=== PATIENT | male | born 1960 | race Caucasian/White ===

== ENCOUNTER 2021-12-30 18:52 | Emergency (ER) | payer MEDICAID ==
[~2021-12-30] VITALS: Ht 180.3 cm; Wt 90.9 kg
[~2021-12-30 18:52] MED LIST: AMIODARONE 150 MG/3 ML VIAL ONE; EPINEPHrine SYRINGE 1 MG/10 ML SYRINGE. ONE; SODIUM BICARB ADULT 8.4% 50 MEQ/50 ML DISP.SYRIN. ONE
[2021-12-30] MEDS ORDERED: EPINEPHrine SYRINGE 1 MG/10 ML SYRINGE. ONE (19:05)
[2021-12-30] MEDS ORDERED: MAGNESIUM SULFATE 2 GM/50 ML IV ONE (19:05)
[2021-12-30] MEDS ORDERED: EPINEPHrine 1 MG/ML VIAL ONE (19:05)
--- NOTE | 2021-12-30 21:09 | PHYS DOC ---
Past Medical History Past Surgical History: Pacemaker Smoking Status: Unknown if ever smoked Alcohol Use: None Adult General Chief Complaint Chief Complaint: CPR/FULL ARREST HPI HPI Patient is a 61 year old male who presents in cardiac arrest. The patient was complaining of chest pain earlier and had called EMS. Upon arrival the patient had become unresponsive and EMS initiated chest compressions. He was given 4 mg of epinephrine in route and bagged with bag valve mask device till arriving in the ED. Patient has been pulseless since 6:30 PM or so. EMS had a rhythm of PEA in route. Patient had also been given 1 amp of bicarb in route. He has a history of pacemaker placement otherwise cardiac and other past medical history are unknown. Review of Systems Review of Systems Unable to obtain review of systems secondary to patient's unresponsive status Allergies Allergies Allergies Coded Allergies Type Severity Reaction Last Updated Verified Unable to Assess 12/30/21 No Physical Exam Physical Exam Constitutional: Well developed, well nourished, obtunded and unresponsive HENT: Normocephalic, atraumatic, bilateral external ears normal, oropharynx moist. [] Eyes: Pupils are unresponsive, no injection. [] Neck: No palpable crepitus, trachea midline. [] Cardiovascular: Patient is pulseless with a nonpalpable pulse and nonaudible heart tones. [] Lungs & Thorax: Bilateral breath sounds clear to auscultation after endotracheal intubation [] Abdomen: No palpable masses or organomegaly Skin: Warm, dry, no erythema, no rash. [] Extremities: No edema or external evidence of trauma Neurologic: Patient is obtunded nonresponsive to verbal stimuli or painful stimuli. No gag reflex, no corneal reflex. Psychologic: Patient unresponsive Current Patient Data Vital Signs Vital Signs Date Time Temp Pulse Resp B/P (MAP) Pulse Ox O2 Delivery O2 Flow Rate FiO2 12/30/21 18:52 Bag Valve Mask EKG EKG [] Radiology/Procedures Radiology/Procedures [] Course & Med Decision Making Course & Med Decision Making Pertinent Labs and Imaging studies reviewed. (See chart for details) [] There is a 61-year-old male was brought in as a medical code. 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 He was given an additional milligram of epi and an additional amp of bicarb and endotracheal tube was placed and secured. This was confirmed with auscultation as well as end-tidal CO2 detection. Rhythm remained disorganized and patient was cardioverted, that is defibrillated at 200 J. He was given additional milligram of epi x2 and then escalating dose of 3 mg. He was defibrillated 2 additional times and given 2 additional amps of bicarb throughout the code. Bedside cardiac ultrasound demonstrated lack of any cardiac physical activity at all. Patient's efforts at resuscitation were stopped at 19:09. Dragon Disclaimer Dragon Disclaimer This electronic medical record was generated, in whole or in part, using a voice recognition dictation system. Departure Departure Impression: Primary Impression: Cardiac arrest Disposition: 20 Condition: Referrals: UNKNOWN PCP NAME (PCP) BRENDA ORTEGA MD Dec 30, 2021 21:09
== END 2021-12-30 21:25 ==
LOC: ER 18:52
DX: I46.9 Cardiac arrest, cause unspecified (principal); Z95.0 Presence of cardiac pacemaker
CPT/HCPCS: 31500; 92950; 99285; J0171; J3475; J0282; J3490